=== PATIENT | female | born 1965 | race Native Hawaiian/Other Pacific Islander ===

== ENCOUNTER 2017-10-25 06:56 | Day surgery (SDC) | payer BC ==
[2017-10-25 07:14] VITALS: BMI 34.9
[2017-10-25] MEDS ORDERED: Midazolam 2 MG/2 ML VIAL ONE (07:34)
[2017-10-25] MEDS ORDERED: Lidocaine Hydrochloride 5 ML INJ ONE (07:35)
[2017-10-25] MEDS ORDERED: Lidocaine 4% (Laryng-O-Jet) Kit MM ONE (07:36)
[2017-10-25 07:38] LABS: BASO % 0.7 % (0.0-2.0); EOS # 0.2 K/uL (0.0-0.7); EOS % 2.9 % (0.0-4.0); HEMOGLOBIN 14.3 g/dL (11.0-16.0); LYMPH # 1.6 K/uL (1.0-4.3); LYMPH % 21.8 % (20.0-40.0); MEAN CELL VOLUME 83.5 fL (81.0-99.0); MEAN CORPUSCULAR HEMOGLOBIN 28.2 pg (27.0-31.0); MEAN CORPUSCULAR HGB CONC 33.8 g/dL (33.0-37.0); MEAN PLATELET VOLUME 7.8 fL (7.2-11.7); MONO # 0.5 K/uL (0.0-0.8); MONO % 6.2 % (0.0-10.0); NEUT # 5.1 K/uL (1.8-7.0); NEUT % 68.4 % (50.0-75.0); RBC 5.06 Mil/uL (3.80-5.20); RED CELL DISTRIBUTION WIDTH 13.8 % (11.5-14.5); WHITE BLOOD COUNT 7.5 K/uL (4.8-10.8)
[2017-10-25] MEDS ORDERED: Propofol 10 mg/ml Inj (20 ML) ONE (07:41)
[2017-10-25 07:48] LABS: BLOOD UREA NITROGEN 18 mg/dL (7-17); CALCIUM 9.3 mg/dl (8.6-10.4); GFR AFRICAN-AMERICAN > 60; GFR NON-AFRICAN AMERICAN > 60; PROTHROMBIN TIME 10.9 SECONDS (9.7-12.2)
--- NOTE | 2017-10-27 00:29 | CARD ---
APPROVED REPORT EXAM: Transesophageal echocardiogram with color flow Doppler. INDICATION ASD PFO Mitral Valve E/A ratio0.0 TDI E/Lateral E'0.0E/Medial E'0.0 Reason For Test : Intra cardiac shunt PROCEDURE After obtaining informed consent, patient underwent transesophageal echo in the [employer]. Type of Sedation : Conscious Sedation Sedation was provided by anesthesiologist. Sedation was achieved with intravenously. The DELPHINE was performed complications. Throughout the procedure, the blood pressure, pulse oximetry, cardiac rhythm, and rate were monitored. The patient tolerated the procedure without adverse effects. Recovery from conscious sedation was uneventful and vital signs were stable. LEFT VENTRICLE The left ventricle is normal size. There is normal left ventricular wall thickness. Left ventricle systolic function is normal. The Ejection Fraction is 60-65%. There is normal LV segmental wall motion. No left ventricle thrombus noted on this study. There is no ventricular septal defect visualized. There is no left ventricular aneurysm. RIGHT VENTRICLE The right ventricle is normal size. The right ventricular systolic function is normal. ATRIA The left atrium is moderately dilated. The right atrium is moderately dilated. Atrial Septal defect noted. Bubble cross over noted. QP/QS=1.8 suggestive of clnically significant shunt. Right atrium dilated. Elevated Pulmonary pressures AORTIC VALVE The aortic valve is normal in structure. No aortic regurgitation is present. There is no aortic valvular stenosis. There is no aortic valvular vegetation. MITRAL VALVE The mitral valve is normal in structure. There is no evidence of mitral valve prolapse. There is no mitral valve stenosis. Mitral regurgitation is mild to moderate. TRICUSPID VALVE The tricuspid valve is normal in structure. There is mild tricuspid regurgitation. There is no tricuspid valve prolapse or vegetation. There is no tricuspid valve stenosis. PULMONIC VALVE The pulmonary valve is normal in structure. There is no pulmonic valvular regurgitation. There is no pulmonic valvular stenosis. GREAT VESSELS The aortic root is normal in size. <Conclusion> Left ventricle systolic function is normal. The Ejection Fraction is 60-65%. Mitral regurgitation is mild to moderate. There is mild tricuspid regurgitation. The left atrium is moderately dilated. The right atrium is moderately dilated. Atrial Septal defect noted. Bubble cross over noted. QP/QS=1.8 suggestive of clnically significant shunt. Right atrium dilated. Elevated Pulmonary pressures Recommend [facility] followed by Percutaneous ASD closure
== END 2017-10-25 10:30 | disposition home or self-care (01) ==
LOC: C.CATHLAB 06:56
PROVIDERS: ATTEND Internal Medicine Cardiovascular Disease
DX: Q21.1 Atrial septal defect (principal); R06.02 Shortness of breath; I10 Essential (primary) hypertension; Z91.013 Allergy to seafood; I48.91 Unspecified atrial fibrillation; I34.0 Nonrheumatic mitral (valve) insufficiency; Z79.82 Long term (current) use of aspirin; E78.00 Pure hypercholesterolemia, unspecified; H91.92 Unspecified hearing loss, left ear
CPT/HCPCS: 36415; 80048; 84703; 85025; 85610; 85730; 93312; J2250; J2704

== ENCOUNTER 2017-11-08 05:43 | Day surgery (SDC) | payer BC, OTHER ==
[2017-11-08 06:03] VITALS: BMI 34.8
[2017-11-08] MEDS ORDERED: DiphenhydrAMINE 50 mg/ml Inj ONE (06:33)
[2017-11-08] MEDS ORDERED: Iodixanol 320 MG/ML 100 ML BOTTLE IV ONE ×2 (07:17→07:36)
[2017-11-08] MEDS ORDERED: Midazolam 2 MG/2 ML VIAL ONE (07:23)
[2017-11-08] MEDS ORDERED: Lidocaine/Epinephrine 1% 1:100000 10 ML IJ ONE (07:34)
[2017-11-08 07:56] LABS: ARTERIAL BLOOD GAS HCO3 24.7 mmol/L (21-28); ARTERIAL BLOOD GAS HEMOGLOBIN 14.3 g/dL (11.7-17.4); ARTERIAL BLOOD GAS O2 SAT 93.7 % (95-98); ARTERIAL BLOOD GAS PCO2 49 mm/Hg (35-45); ARTERIAL BLOOD GAS PH 7.34 (7.35-7.45); ARTERIAL BLOOD GAS PO2 62 mm/Hg (80-100); ARTERIAL BLOOD GAS TCO2 27.9 mmol/L (22-28)
[2017-11-08 08:00] LABS: VENOUS BLOOD GAS BASE EXCESS -0.4 mmol/L (0.0-2.0); VENOUS BLOOD GAS PCO2 48 mmHg (40-60); VENOUS BLOOD GAS PO2 45 mm/Hg (30-55); VENOUS BLOOD PH 7.34 (7.32-7.43)
[2017-11-08 08:03] LABS: VENOUS BLOOD GAS BASE EXCESS -1.1 mmol/L (0.0-2.0); VENOUS BLOOD GAS PCO2 53 mmHg (40-60); VENOUS BLOOD GAS PO2 37 mm/Hg (30-55)
[2017-11-08 08:06] LABS: VENOUS BLOOD GAS BASE EXCESS -0.5 mmol/L (0.0-2.0); VENOUS BLOOD GAS PCO2 51 mmHg (40-60); VENOUS BLOOD GAS PO2 44 mm/Hg (30-55); VENOUS BLOOD PH 7.32 (7.32-7.43)
[2017-11-08 08:10] LABS: VENOUS BLOOD GAS BASE EXCESS -0.9 mmol/L (0.0-2.0); VENOUS BLOOD GAS PCO2 50 mmHg (40-60); VENOUS BLOOD GAS PO2 45 mm/Hg (30-55); VENOUS BLOOD PH 7.32 (7.32-7.43)
[2017-11-08 08:13] LABS: VENOUS BLOOD GAS BASE EXCESS 0.3 mmol/L (0.0-2.0); VENOUS BLOOD GAS PCO2 53 mmHg (40-60); VENOUS BLOOD GAS PO2 41 mm/Hg (30-55); VENOUS BLOOD PH 7.32 (7.32-7.43)
--- NOTE | 2017-11-08 10:42 | CARDCATH ---
PROCEDURE DATE: 11/08/2017 PROCEDURES: 1. Left heart catheterization. 2. Coronary angiogram. 3. Right heart catheterization. 4. Radiological supervision and radiological interpretation of the left and right heart catheterization with coronary angiogram. PERFORMING PHYSICIAN: Garrett Cantor MD REFERRING PHYSICIAN: Rm Urias MD CLINICAL INDICATIONS: 1. Exertional dyspnea. 2. Atrial septal defect. 3. Atrial fibrillation. 4. Hyperlipidemia. DESCRIPTION OF PROCEDURE: After informed consent, the patient was prepped and draped in the usual sterile fashion. A 2% lidocaine was given in the right groin for local anesthesia. Using micropuncture technique, a 6-Bangladeshi sheath was introduced into the right common femoral artery. A 7-Bangladeshi sheath was introduced into the right common femoral vein. Using a [place] catheter, right heart catheterization was performed. Right heart pressures were taken. All the saturations were obtained and cardiac output calculated. Then, a 6-Bangladeshi JL4 diagnostic catheter engaged into left main coronary artery. Contrast injected and left coronary angiogram was performed. Then, a JR4 6-Bangladeshi diagnostic catheter engaged into right coronary artery. Contrast injected and right coronary angiogram was done. Then, a 6-Bangladeshi pigtail catheter inserted into left ventricle across the aortic valve. LV end-diastolic pressure measured. Contrast was injected and LV angiogram was done. The catheter was pulled back across the aortic valve. Gradient across the aortic valve was measured. The patient tolerated the procedure well. FINDINGS OF LEFT HEART CATHETERIZATION: 1. Left main coronary artery is patent. 2. LAD and diagonal branches are patent. 3. Left circumflex and obtuse marginal branches are patent. 4. Right coronary artery is dominant and patent. 5. LV ejection fraction is approximately 70%. Mild mitral regurgitation. LV end-diastolic pressure is 23.. FINDINGS OF RIGHT HEART CATHETERIZATION: Pressures in mmHg: PCW 14, PA 40/23, mean of , RV 37/8, RA 7. Saturations on room air in percentage: PA 78.7%, RV 81%, RA 81.5%, SVC 70.8%, IVC 71.8%. Saturations of the aorta is 93.7%. Cardiac output by Cem method is 6.2 L per minute. Cardiac index is 3 L per minute per meter square. CONCLUSION: 1. Normal coronaries. 2. Normal left ventricular systolic function. 3. Mild pulmonary hypertension. 4. Step-up in the oxygen is suggestive of atrial septal defect. Garrett Cantor MD
[2017-11-08 13:26] VITALS: TEMP 98.1
[2017-11-08 13:28] VITALS: BP 132/77; PULSE 94; RESP 12
== END 2017-11-08 12:15 | disposition home or self-care (01) ==
LOC: C.CATHLAB 05:43
PROVIDERS: ATTEND Internal Medicine Cardiovascular Disease
DX: Q21.1 Atrial septal defect (principal); Z91.013 Allergy to seafood; H91.92 Unspecified hearing loss, left ear; I48.91 Unspecified atrial fibrillation; I10 Essential (primary) hypertension; E78.00 Pure hypercholesterolemia, unspecified
CPT/HCPCS: 82803; 84703; 93460; J1200; J1644; J2250; J2930; J3010; Q9967